=== PATIENT | male | born 1970 | race Two or more races ===

== ENCOUNTER 2019-04-16 13:59 | Emergency (ER) | payer SELFPAY ==
[~2019-04-16] VITALS: Ht 185.4 cm; Wt 91.0 kg
[2019-04-16] MEDS ORDERED: IBUPROFEN 800MG TABLET PO ONE (15:45)
[2019-04-16 15:53] VITALS: BP 119/79
== END 2019-04-16 16:23 | disposition home or self-care (01) ==
LOC: ER 14:05
DX: J06.9 Acute upper respiratory infection, unspecified (principal); R50.9 Fever, unspecified
CPT/HCPCS: 71045; 99283